=== PATIENT | female | born 1985 | race Caucasian/White ===

== ENCOUNTER 2017-08-30 07:51 | Emergency (ER) | payer BC, OTHER ==
--- NOTE | 2017-08-30 07:59 | EDPHY ---
H & P Stated Complaint: Upper abd "stomach ache", fever, loose stools, slight nausea HPI/ROS: CHIEF COMPLAINT: Abdominal pain, fever HISTORY OF PRESENT ILLNESS: This patient is a 32 year old female complaining of abdominal pisano with associated nausea, fever, and loose stools onset four days ago. She feels a pressure sensation in her abdomen. The pain has been intermittent and is exacerbated by movement such as driving down a bumpy road. Associated with lack of appetite and increased pain with food intake. The discomfort is most severe in the right lower quadrant. She has a headache as well. She has had soft stools, but not diarrhea. Last night, she took her temperature and it was 101 degrees Fahrenheit. This morning she does not have fever. No abnormal vaginal discharge, last menstrual period 1.5 weeks ago. She denies recent illness, chest pain, shortness of breath, urinary complaints, or other associated symptoms. REVIEW OF SYSTEMS: A 10 point review of systems was performed and is negative with the exception of the elements mentioned in the history of present illness. - Personal History LMP (Females 10-55): 8-14 Days Ago Current Tetanus Diphtheria and Acellular Pertussis (TDAP): Yes - Medical/Surgical History PMH: 1. Chiari malformation, asymptomatic, diagnosed incidentally by CT. Hx Asthma: No Hx Chronic Respiratory Disease: No Hx Diabetes: No Hx Cardiac Disease: No Hx Renal Disease: No Hx Cirrhosis: No Hx Alcoholism: No Hx HIV/AIDS: No Hx Splenectomy or Spleen Trauma: No Other PMH: none - Social History Smoking Status: Never smoked Additional Social History: Nonsmoker. Occasional marijuana use. Lives in [place]. - Physical Exam Exam: General Appearance: Alert, pleasant Eyes: Pupils equal and round, no conjunctival pallor or injection ENT, Mouth: Mucous membranes dry, lips are chapped. Neck: Normal inspection Respiratory: Lungs are clear to auscultation Cardiovascular: Regular rate and rhythm Gastrointestinal: Diffuse abdominal tenderness, especially in RLQ. Abdomen is soft. Neurological: A&O, nonfocal, normal gait Skin: Warm and dry, no rash Extremities: Nontender, no pedal edema Psychiatric: Mood and affect normal Constitutional: Initial Vital Signs Temperature (C) 36.9 C 08/30/17 07:52 Heart Rate 98 08/30/17 07:52 Respiratory Rate 16 08/30/17 07:52 Blood Pressure 135/86 H 08/30/17 07:52 O2 Sat (%) 98 08/30/17 07:52 O2 Delivery Mode Room Air Allergies/Adverse Reactions: amoxicillin [Amoxicillin] Allergy (Mild, Verified 08/30/17 07:52) Rash shellfish Allergy (Unknown, Uncoded 08/30/17 07:57) Home Medications: Medication Instructions Recorded Cefdinir [Omnicef (*)] 300 mg PO BID #20 cap 08/30/17 Norethindrone A-E Estradiol 1 each PO 08/30/17 [Microgestin] Medical Decision Making - Diagnostics Imaging Results: Imaging Impressions Abdomen Ultrasound 08/30/17 08:24 Impression: No evidence for appendicitis. Findings and recommendations discussed with Emergency Department physician, NOY WOO at 10:05 hour, 08/30/2017. Final report concurs with initial preliminary interpretation. Abdomen CT 08/30/17 10:23 Impression: 1. Ileocecal nonspecific colitis with a differential diagnosis of inflammatory bowel disease versus infectious/inflammatory colitis. Recommend follow-up colonoscopy. 2. No CT evidence of appendicitis, abscess or bowel obstruction. 3. Minimal free fluid in the pelvis. Findings and recommendations discussed with Emergency Department physician, Noy Woo at 12 02 hour, 08/30/2017. Final report concurs with initial preliminary interpretation. Cosign: Dr. Alec Portillo. Imaging: Discussed imaging studies w/ on call pharmacy technician Radiologist ED Course/Re-evaluation: 32 y/o female presents with four day history of abdominal discomfort, nausea, and fever. Exam reveals diffuse abdominal tenderness, especially in RLQ. She has dry oral mucosa. Plan for US abdomen to r/o appendicitis. The patient declines pain medication at this time. IV established. Plan for labs including CBC, BMP, BHCG, and UA. Plan to administer 1L IV NS and 4mg IV Zofran for symptom relief. UA positive for UTI. Administered an additional 1L IV NS for dehydration relief. 10:[address] Neely, radiologist. US abdomen negative for evidence of appendicitis. 10:37 Reassessed patient. Discussed imaging results. Plan for CT abdomen/pelvis for further r/o. 12:[address] negative for appendicitis. Evidence of colitis. Discussed results with patient. Declines admission. Abdominal exam is unchanged. Plan to d/c in good condition with prescription for Omnicef for probable urinary tract infection. She will follow up with gastroenterology. Return precautions discussed. She is comfortable with this plan. Differential Diagnosis: Differential diagnosis includes though it is not limited to appendicitis, cholecystitis, diverticulitis, pyelonephritis, bowel perforation, small bowel obstruction. - Data Points Laboratory Results: Laboratory Results 08/30/17 08:25 08/30/17 08:25 08/30/17 08/30/17 08/30/17 08:25 08:25 08:25 WBC 7.67 10^3/uL 10^3/uL (3.80-9.50) RBC 5.99 10^6/uL H 10^6/uL (4.18-5.33) Hgb 19.0 g/dL H g/dL (12.6-16.3) Hct 54.4 % H % (38.0-47.0) MCV 90.8 fL fL (81.5-99.8) MCH 31.7 pg pg (27.9-34.1) MCHC 34.9 g/dL g/dL (32.4-36.7) RDW 12.0 % % (11.5-15.2) Plt Count 195 10^3/uL 10^3/uL (150-400) MPV 10.4 fL fL (8.7-11.7) Neut % (Auto) 68.4 % % (39.3-74.2) Lymph % (Auto) 20.5 % % (15.0-45.0) [place] % (Auto) 9.3 % % (4.5-13.0) Eos % (Auto) 0.7 % % (0.6-7.6) Baso % (Auto) 0.8 % % (0.3-1.7) Nucleat RBC Rel Count 0.0 % % (0.0-0.2) Absolute Neuts (auto) 5.26 10^3/uL 10^3/uL (1.70-6.50) Absolute Lymphs (auto) 1.57 10^3/uL 10^3/uL (1.00-3.00) Absolute Monos (auto) 0.71 10^3/uL 10^3/uL (0.30-0.80) Absolute Eos (auto) 0.05 10^3/uL 10^3/uL (0.03-0.40) Absolute Basos (auto) 0.06 10^3/uL 10^3/uL (0.02-0.10) Absolute Nucleated RBC 0.00 10^3/uL 10^3/uL (0-0.01) Immature Gran % 0.3 % % (0.0-1.1) Immature Gran # 0.02 10^3/uL 10^3/uL (0.00-0.10) Sodium 141 mEq/L mEq/L (134-144) Potassium 4.2 mEq/L mEq/L (3.5-5.2) Chloride 102 mEq/L mEq/L (97-110) Carbon Dioxide 21 mEq/l L mEq/l (22-31) Anion Gap 18 mEq/L H mEq/L (8-16) BUN 11 mg/dL mg/dL (7-23) Creatinine 1.0 mg/dL mg/dL (0.6-1.0) Estimated GFR > 60 Glucose 91 mg/dL mg/dL (70-100) Calcium 9.6 mg/dL mg/dL (8.5-10.4) Beta HCG, Qual NEGATIVE Urine Color Urine Appearance Urine pH Ur Specific [place] Urine Protein Urine Ketones Urine Blood Urine Nitrate Urine Bilirubin Urine Urobilinogen Ur Leukocyte Esterase Urine RBC Urine WBC Ur Epithelial Cells Urine Bacteria Urine Mucus Urine Glucose 08/30/17 08:00 WBC RBC Hgb Hct MCV MCH MCHC RDW Plt Count MPV Neut % (Auto) Lymph % (Auto) [place] % (Auto) Eos % (Auto) Baso % (Auto) Nucleat RBC Rel Count Absolute Neuts (auto) Absolute Lymphs (auto) Absolute Monos (auto) Absolute Eos (auto) Absolute Basos (auto) Absolute Nucleated RBC Immature Gran % Immature Gran # Sodium Potassium Chloride Carbon Dioxide Anion Gap BUN Creatinine Estimated GFR Glucose Calcium Beta HCG, Qual Urine Color YELLOW Urine Appearance HAZY Urine pH 5.0 (5.0-7.5) Ur Specific [place] 1.016 (1.002-1.030) Urine Protein NEGATIVE (NEGATIVE) Urine Ketones TRACE H (NEGATIVE) Urine Blood 2+ H (NEGATIVE) Urine Nitrate NEGATIVE (NEGATIVE) Urine Bilirubin NEGATIVE (NEGATIVE) Urine Urobilinogen NEGATIVE EU EU (0.2-1.0) Ur Leukocyte Esterase 1+ H (NEGATIVE) Urine RBC 5-10 /hpf H /hpf (0-3) Urine WBC 5-10 /hpf H /hpf (0-3) Ur Epithelial Cells 1+ /lpf /lpf (NONE-1+) Urine Bacteria 4+ /hpf H /hpf (NONE SEEN) Urine Mucus 2+ /lpf H /lpf (NONE-1+) Urine Glucose NEGATIVE (NEGATIVE) Medications Given: Discontinued Medications Sodium Chloride (Ns) 1,000 mls @ 0 mls/hr IV EDNOW ONE; Wide Open PRN Reason: Protocol Stop: 08/30/17 08:10 Last Admin: 08/30/17 08:26 Dose: 1,000 mls Sodium Chloride (Ns) 1,000 mls @ 0 mls/hr IV ONCE ONE; Wide Open PRN Reason: Protocol Stop: 08/30/17 08:50 Last Admin: 08/30/17 09:09 Dose: 1,000 mls Ondansetron HCl (Zofran) 4 mg IVP EDNOW ONE Stop: 08/30/17 08:10 Last Admin: 08/30/17 08:26 Dose: 4 mg Departure - Departure Disposition: Home, Routine, Self-Care Clinical Impression: Colitis Urinary tract infection Qualifiers: Urinary tract infection type: acute cystitis Hematuria presence: without hematuria Qualified Code(s): N30.00 - Acute cystitis without hematuria Abdominal pain Qualifiers: Abdominal location: right lower quadrant Qualified Code(s): R10.31 - Right lower quadrant pain Condition: Good Instructions: Cefdinir (By mouth), Urinary Tract Infection in Women (ED), Abdominal Pain (ED) Additional Instructions: 1. Follow up with a gastroenterology specialist for continued evaluation. 2. Take your Omnicef as prescribed. It is important to finish your entire course of antibiotics even if you are feeling better. 3. Return to the emergency department for increased or changing abdominal pain, uncontrollable vomiting or diarrhea, fever, pain or difficulty with urination, flank pain, or other worsening of condition. Referrals: Alec Reeves MD [[facility] [place] Primary Care Provider] - As per Instructions Zee Nichols NP [Primary Care Provider] - As per Instructions Prescriptions: Cefdinir [Omnicef (*)] 300 mg PO BID #20 cap Report Scribed for: Noy Woo Report Scribed by: Danyell Marin Date of Report: 08/30/17 Time of Report: 07:58 Physician Review and Approval Statement: 08/30/17 07:58 Portions of this note were transcribed by a medical office assistant instructor. I personally performed a history, physical exam, medical decision making, and confirmed accuracy of information the transcribed note.
[2017-08-30] MEDS ORDERED: NS 1,000 ML IV ONE ×2 (08:09→08:49)
[2017-08-30] MEDS ORDERED: ONDANSETRON 4 MG/2 ML VIAL IVP ONE (08:09)
[2017-08-30 08:33] LABS: % IMMATURE GRANULYOCYTES 0.3 % (0.0-1.1); ABSOLUTE IMMATURE GRANULOCYTES 0.02 10^3/uL (0.00-0.10); ADD DIFF? NO; ADD MORPH? NO; ADD SCAN? NO; ATYPICAL LYMPHOCYTE FLAG 20 (0-99); FRAGMENT RBC FLAG 0 (0-99); HEMATOCRIT 54.4 % (38.0-47.0); LEFT SHIFT FLG 0 (0-99); LIPEMIA HEMOLYSIS FLAG 90 (0-99); MEAN CELL HEMOGLOBIN 31.7 pg (27.9-34.1); MEAN CELL HEMOGLOBIN CONCENTR. 34.9 g/dL (32.4-36.7); MEAN CELL VOLUME 90.8 fL (81.5-99.8); MEAN PLATELET VOLUME 10.4 fL (8.7-11.7); PLATELET CLUMPS FLAG 20 (0-99); PLATELET COUNT 195 10^3/uL (150-400); RED BLOOD CELL COUNT 5.99 10^6/uL (4.18-5.33)
[2017-08-30 08:37] LABS: COLOR YELLOW; LEUKOCYTE ESTERASE,URINE 1+ (NEGATIVE); NITRITE,URINE NEGATIVE (NEGATIVE)
[2017-08-30 08:44] LABS: BACTERIA 4+ /hpf (NONE SEEN); MUCUS 2+ /lpf (NONE-1+)
[2017-08-30 08:48] LABS: ANION GAP 18 mEq/L (8-16); CALCIUM 9.6 mg/dL (8.5-10.4); CARBON DIOXIDE 21 mEq/l (22-31); CHLORIDE 102 mEq/L (97-110); GLOMERULAR FILTRATION RATE > 60; GLUCOSE 91 mg/dL (70-100); POTASSIUM 4.2 mEq/L (3.5-5.2); SODIUM 141 mEq/L (134-144)
[2017-08-30] MEDS ORDERED: IOPAMIDOL (ISOVUE-300) 100 ML BTL ONE (10:45)
[2017-08-30 13:31] VITALS: BP 119/81; PULSE 82; RESP 18; TEMP 98.2; O2SAT 99
== END 2017-08-30 13:31 | disposition home or self-care (01) ==
DX: K52.89 Other specified noninfective gastroenteritis and colitis (principal); N30.00 Acute cystitis without hematuria; B96.89 Other specified bacterial agents as the cause of diseases classified elsewhere; E86.9 Volume depletion, unspecified
CPT/HCPCS: 96374; J2405; Q9967